=== PATIENT | female | born 1970 | race Caucasian/White ===

== ENCOUNTER 2023-07-27 11:58 | Emergency (ER) | payer BC, SELFPAY ==
[2023-07-27 12:07] VITALS: BP 155/97
[2023-07-27 12:36] LABS: % Basophils 0.6 % (0-2); % Eosinophils 0.7 % (0-6); % Immature Granulocytes 0.1 % (0-0.5); % Lymphocytes 40.7 % (20.5-51.1); % Monocytes 5.8 % (1.7-9.3); % Neutrophils 52.1 % (42.2-75.2); Absolute Eosinophils 0.1 10^3/uL (0-0.7); Absolute Lymphocytes 2.8 10^3/uL (1.2-3.4); Absolute Monocytes 0.4 10^3/uL (0.1-0.6); Absolute Neutrophils 3.5 10^3/uL (1.4-6.5); Hemoglobin 13.8 g/dL (12.0-16.0); Mean Corp Hgb Conc. 32.9 g/dL (33.0-37.0); Mean Corpuscular Hgb 29.7 pg (27.0-31.0); Mean Corpuscular Volume 90.5 fL (81.0-99.0); Mean Platelet Volume 9.9 fL (7.4-10.4); Nucleated Red Blood Cells % 0 %; Platelet Count 330 10^3/uL (130-400); Red Blood Cell Count 4.64 10^6/uL (4.20-5.40); Red Cell Dist. Width 11.7 % (11.5-14.5); White Blood Cell Count 6.8 10^3/uL (4.8-10.8)
[2023-07-27 13:03] LABS: Troponin I < 0.012 ng/ml
--- NOTE | 2023-07-27 13:32 | ED.GENMED ---
History of Present Illness
General
Chief Complaint: Chest Pain
Source: patient
Exam Limitations: none
Time Seen by Provider: 07/27/23 12:58
Nursing documentation reviewed up to this point in time: agreed with
Travel History
Have you had any contact with someone who has COVID-19?: No
Do you have any symptoms of coronavirus? Fever > 100 degrees, chills, cough, shortness of breath, sore throat, loss of taste or smell, muscle aches, or headache?: No
History of Present Illness
History of Present Illness:
53-year-old female with a past medical history of hypertension who presents to the emergency room for evaluation of chest pain. Patient reports onset of symptoms yesterday evening and they have been constant since that time. She reports onset of
symptoms while she was at work, was not exertional. She reports a substernal pressure sensation. She says that it will occasionally radiate towards her left scapular region. No clear exacerbating or relieving factors noted. She reports
associated belching. She says that she has not had any nausea or vomiting. She denies any diaphoresis. She denies any shortness of breath. She denies any recent cough, fevers, chills. Only other report is that over the past week or 2 she has
noticed occasional positional dizziness. Patient says that she has had similar symptoms in the past related to indigestion and believes that increase stress recently could be contributing to her symptoms. Nevertheless she has a strong family
history of heart issues in both her mother and her father and so she came to the emergency room for assessment. She says she is a non-smoker, denies any drug or alcohol use.
Past History
Past History
ED Past Medical History: Negative Arrthythmia, CAD, CVA or HTN
ED Past Surgical History: Other (Breast surgery)
Social History
Personal: Partner
Living: with family
Employment: Employed
Review of Systems
Review of Systems
All Other Systems: ROS reviewed and negative except as documented in HPI and ROS
Constitutional: Denies fever or chills
EENT: Denies sore throat or runny nose
Respiratory: Denies cough or trouble breathing
Cardiac: Reports chest pain; Denies diaphoresis or palpitations
ABD/GI: Reports other (Belching); Denies abdominal pain, nausea, vomiting or diarrhea
: Denies flank pain
Musculoskeletal: Denies neck pain or back pain
Neurological: Reports dizzy; Denies headache, weakness or numbness
Phy Exam
Physical Exam
Physical Exam:
General: Awake, alert, oriented x3; no acute distress
Head: Normocephalic, atraumatic
Eyes: Conjunctiva normal, sclera anicteric
Throat: Airway intact, handling secretions
Neck: Trachea midline, supple without meningismus
Lungs: Clear to auscultation bilaterally, no wheezing, rales, rhonchi
Heart: Regular rate and rhythm, no murmurs, gallops, or rubs
Abd: Soft, non distended, nontender to deep palpation
Neuro: Cranial nerves grossly intact, speech fluid
Skin: no rash
Extremities: No edema in extremities, equal pulses in all extremities
Scores
Heart Failure Risk
Heart Failure Risk Score: Not Applicable
Heart Score for Chest Pain Patients
STEMI patient?: No
History: Slightly or Non-Suspicious
ECG: Normal
Age: >45 - <65 years
Risk Factors: 1 or 2 Risk Factors
Troponin: </= Normal Limit
Heart Score for Chest Pain Patients: 2
Heart Score Risk: 2.5% MACE over next 6 weeks
Withdrawal Assessment of Alcohol
Withdrawal Assessment Completed?: Not applicable
Course
Orders/Labs/Results
Orders:
Orders
07/27/23 12:06
Electrocardiogram (*1) Urgent
Reason for Study: Chest Pain
EKG- Treatment ONCE
07/27/23 12:29
Complete Blood Count/With Diff Urgent
Comprehensive Metabolic Panel Urgent
Troponin I Urgent
07/27/23 13:32
D-Dimer Urgent
Mag Hydrox/Al Hydrox/Simeth [Maalox] 30 ml Phenobarb/Hyoscy/Atropine/Scop [] 10 ml Viscous Lidocaine 2% [Xylocaine Viscous Cup] 10 ml PO NOW
Pantoprazole [Protonix] 40 mg PO NOW STA
CR Chest - 2 Views Urgent
Comment:
Reason For Exam: chest pain
Abnormal Lab Results
07/27/23
12:29
MCHC 32.9 L g/dL
(33.0-37.0)
07/27/23 12:29
Vital Signs
Initial and Last Documented VS:
Initial Vital Signs
Temp Pulse Resp BP Pulse Ox
36.9 C 94 17 155/97 100
07/27/23 12:07 07/27/23 12:07 07/27/23 12:07 07/27/23 12:07 07/27/23 12:07
Last Documented Vital Signs
Temp Pulse Resp BP Pulse Ox
36.9 C 94 17 155/97 100
07/27/23 12:07 07/27/23 12:07 07/27/23 12:07 07/27/23 12:07 07/27/23 12:07
MDM/Problems Addressed
Differential Diagnosis Includes:
GERD/indigestion, ACS, pericarditis, pneumonia, pneumothorax, pulmonary embolism, costochondritis, anxiety
MDM/Problems Addressed:
53-year-old female presents for evaluation of chest pain radiating to the left scapula since yesterday evening. She says similar to prior episodes of indigestion but given her strong family history of cardiac issues as well as slightly elevated
blood pressure at home she decided she should come for assessment. She is mildly hypertensive here 155/97. Rest of vitals normal. EKG shows no STEMI. Exam as above. Plan to place an IV check labs including CBC and CMP, troponin. Will check a
D-dimer as she did have a recent vacation 2 weeks ago but low clinical suspicion for PE. Will check a chest x-ray. Will treat with green grabber and Protonix as clinical history suggests indigestion/GERD. Will monitor closely reassess after the
above.
Chronic conditions affecting care:
History of hypertension
Acute Exacerbation and/or Progression of Chronic Illness:
Acutely hypertensive
Acute Exacerbation and/or Progression of Chronic Illness: HTN
*Radiology
Radiology exam reviewed: preliminary read by ED provider and radiology read reviewed
*Pulse Oximetry
Patient hypoxic: no
*EKG
Interpreted by ED Provider?: Yes
Heart Rate: 84
Rate: normal
Rhythm: sinus
Rug[place]: normal axis
Interval: normal interval
QRS Pattern: normal QRS
Ischemia: no ischemia
*Critical Care Note
Total Time (30-74mins, 75-104mins- exclusive of procedures): Not Applicable
Data Reviewed
Review of Other/Old Records Reveals: Labs and Records
Source: patient
ED Attending Note
-
Portions of this chart may have been created with voice recognition software.� Occasional wrong word or��sound alike� substitutions may have occurred due to the inherent limitations of voice recognition software.
Discharge Plan
Departure
Prescriptions:
No Action
naproxen 500 MG tablet
500 mg PO BID
metaxalone [Skelaxin] 800 MG tablet
800 mg PO PRN PRN (Reason: stiff neck)
docosahexaenoic acid-epa 1 CAP capsule
1 cap PO DAILY
Referrals:
Shannon Vitale PA [Family Provider] -
Interventions
Interventions:
*Risk Screen - Suicide Last Done: 07/27/23 12:07
*General Assessment Last Done: 07/27/23 12:07
*Neglect/Abuse Screening Last Done: 07/27/23 12:07
*ED COVID-19 Vaccine History Last Done: 07/27/23 13:02
ED- Cardiac Assessment Last Done: 07/27/23 13:03
[2023-07-27] MEDS: MAALOX 50 PO (13:43)
[2023-07-27] MEDS: PROTONIX 40 MG PO (13:43)
[2023-07-27 13:48] LABS: ALT (SGPT) 30 U/L (0-35); AST (SGOT) 37 U/L (14-36); Albumin 5.3 g/dl (3.5-5.0); Alkaline Phosphatase 102 U/L (38-126); Blood Urea Nitrogen 15 mg/dl (7-17); Calcium 10.1 mg/dl (8.4-10.2); Carbon Dioxide 25 mmol/L (22-30); Chloride 104 mmol/L (98-107); Glucose 102 mg/dl (70-99); Potassium 3.8 mmol/L (3.5-5.1); Sodium 139 mmol/L (135-145); Total Bilirubin 0.6 mg/dl (0.2-1.3); Total Protein 8.6 g/dl (6.3-8.2); eGFR > 60.00
[2023-07-27 14:30] VITALS: BP 141/93
[2023-07-27 14:57] LABS: D-Dimer 0.31 ug/mlFEU (0.00-0.50)
[2023-07-27 15:00] VITALS: BP 121/90
== END 2023-07-27 16:00 | disposition home or self-care (01) ==
LOC: EMR 11:58
PROVIDERS: Emergency Medicine; EMERGENCY PHYSICIAN Emergency Medicine; FAMILY PHYSICIAN Physician Assistant Medical
DX: R07.9 Chest pain, unspecified (principal); I10 Essential (primary) hypertension
CPT/HCPCS: 99285; 71046; 80053; 84484; 85025; 85379; 93005

== ENCOUNTER → 2023-09-10 09:04 | Outpatient (REF) | payer BC, SELFPAY | LOC: HWRCS 09:04 | PROVIDERS: ATTENDING PHYSICIAN Internal Medicine Clinical Cardiac Electrophysiology; FAMILY PHYSICIAN Physician Assistant Medical | DX: R07.9 Chest pain, unspecified (principal) | CPT/HCPCS: 93306 ==

== ENCOUNTER → 2024-05-12 14:43 | Outpatient (REF) | payer BC, SELFPAY | LOC: HWRAD 14:43 | PROVIDERS: ATTENDING PHYSICIAN Physician Assistant Medical; REFERRING PHYSICIAN Internal Medicine Gastroenterology | DX: R10.11 Right upper quadrant pain (principal) | CPT/HCPCS: 76700 ==

== ENCOUNTER → 2024-06-08 14:26 | Outpatient (REF) | payer BC, SELFPAY | LOC: WDC 14:26 | PROVIDERS: ATTENDING PHYSICIAN Physician Assistant Medical | DX: Z12.31 Encounter for screening mammogram for malignant neoplasm of breast (principal); R92.8 Other abnormal and inconclusive findings on diagnostic imaging of breast | CPT/HCPCS: 76642; 77063; 77067 ==

== ENCOUNTER → 2024-06-19 09:42 | Outpatient (REF) | payer BC, SELFPAY | LOC: RAD 09:42 | PROVIDERS: ATTENDING PHYSICIAN Internal Medicine Gastroenterology; FAMILY PHYSICIAN Physician Assistant Medical | DX: R14.2 Eructation (principal) | CPT/HCPCS: 74221 ==